=== PATIENT | male | born 1970 | race Caucasian/White ===

== ENCOUNTER → 2019-07-23 17:30 | Outpatient (BNVA) | payer MEDICARE, SELFPAY | PROVIDERS: Family Provider Nurse Practitioner Family; PCP Nurse Practitioner Family; Visit Provider Nurse Practitioner Family | DX: I10 Essential (primary) hypertension (principal); E55.9 Vitamin D deficiency, unspecified; F41.9 Anxiety disorder, unspecified | CPT/HCPCS: 80053; 80061; 82306; 83721; 84443; 85025 ==

== ENCOUNTER → 2019-08-07 14:42 | Outpatient (BNVA) | payer MEDICARE, SELFPAY | PROVIDERS: Family Provider Nurse Practitioner Family; PCP Nurse Practitioner Family; Visit Provider Nurse Practitioner Psychiatric/Mental Health | DX: F43.23 Adjustment disorder with mixed anxiety and depressed mood (principal); G47.19 Other hypersomnia; F51.04 Psychophysiologic insomnia | CPT/HCPCS: 99213 ==

== ENCOUNTER → 2019-11-28 08:17 | Outpatient (BNVA) | payer MEDICARE, MEDICAID, SELFPAY | PROVIDERS: Family Provider Nurse Practitioner Family; PCP Nurse Practitioner Family; Visit Provider Nurse Practitioner Psychiatric/Mental Health | DX: F43.23 Adjustment disorder with mixed anxiety and depressed mood (principal); G47.19 Other hypersomnia; F51.04 Psychophysiologic insomnia | CPT/HCPCS: 99213 ==

== ENCOUNTER → 2020-03-13 08:17 | Outpatient (BNVA) | payer MEDICAID, SELFPAY | PROVIDERS: Family Provider Nurse Practitioner Family; PCP Nurse Practitioner Family; Visit Provider Nurse Practitioner Psychiatric/Mental Health | DX: F43.23 Adjustment disorder with mixed anxiety and depressed mood (principal); G47.19 Other hypersomnia; F51.04 Psychophysiologic insomnia | CPT/HCPCS: 99213 ==

== ENCOUNTER → 2020-07-16 08:20 | Outpatient (BNVA) | payer MEDICAID, SELFPAY | PROVIDERS: Family Provider Nurse Practitioner Family; PCP Nurse Practitioner Family; Visit Provider Nurse Practitioner Psychiatric/Mental Health | DX: F43.23 Adjustment disorder with mixed anxiety and depressed mood (principal); G47.19 Other hypersomnia; F51.04 Psychophysiologic insomnia | CPT/HCPCS: 99212 ==

== ENCOUNTER → 2021-02-06 07:26 | Outpatient (BNVA) | payer MEDICAID, SELFPAY | PROVIDERS: Family Provider Nurse Practitioner Family; PCP Nurse Practitioner Family; Visit Provider Nurse Practitioner Psychiatric/Mental Health | DX: F43.23 Adjustment disorder with mixed anxiety and depressed mood (principal); G47.19 Other hypersomnia; F51.04 Psychophysiologic insomnia | CPT/HCPCS: 99213 ==

== ENCOUNTER 2021-03-06 01:17 | Emergency (ER) | payer MEDICARE, MEDICAID, SELFPAY ==
[2021-03-06 01:28] VITALS: BP 179/113; PULSE 99; RESP 18; TEMP 37; O2SAT 95; BMI 30.9
--- NOTE | 2021-03-06 01:41 | W.ED.WOUNDLC ---
HPI - Wound/Laceration General: Chief Complaint: Wound/Laceration Stated Complaint: lac on left arm Time Seen by Provider: 03/06/21 01:34 History of Present Illness: HPI narrative: Patient is a 50-year-old male that comes to the ED with laceration on left arm. Injury occurred just prior to arrival. Patient says he was out wrangling up one of his pigs and the tusk of pig caused laceration to patient's left forearm. There was minimal bleeding and patient was able to get it controlled. Patient cleaned out laceration with alcohol before coming to the ED. He thinks he is close to 10 years from his last tetanus shot so would like to get his tetanus booster today. Associated symptoms: Denies chills, fever(s), nausea or vomiting Review of Systems Const: Denies: fever(s), chills or fatigue Eyes: Denies: change in vision or eye discomfort ENMT: Denies: throat pain, odynophagia, nasal discharge or nasal congestion Card: Denies: chest pain, palpitations, edema, swelling of feet/ankles, dyspnea on exertion or orthopnea Resp: Denies: dyspnea, productive cough or non-productive cough GI: Denies: abdominal pain, nausea, vomiting, diarrhea, constipation or hematochezia : Denies: flank pain, difficulty urinating, dysuria or hematuria Musc: Denies: neck pain, back pain or extremity swelling Skin/Breast: Reports: new lesions (left forearm laceration); Denies: rash Neuro: Denies: headache(s), numbness in extremities or weakness in extremities [facility] ED PFSH: Medical History Adjustment disorder with mixed anxiety and depressed mood Anxiety disorder Daytime hypersomnia Psychophysiologic insomnia Vitamin D deficiency Family History Family/Other Hypertension Father Diabetes Mother Cancer Social History Smoking and tobacco status: former smoker Alcohol intake: never Lives independently: Yes Household members: spouse Marital status: Current occupational status: disabled History of recent travel: No Current gender identity: Male Physical Exam Const: COMMON NORMALS: no acute distress, patient oriented x3, healthy appearing and alert GENERAL APPEARANCE: cooperative and comfortable HENMT: COMMON NORMALS: normocephalic HEAD & SCALP: normocephalic MOUTH: Normal oral and palatal mucosa present THROAT: posterior oropharynx normal and uvula midline Neck/C-Spine: COMMON NORMALS: supple GENERAL: Yes normal visual inspection Resp: COMMON NORMALS: normal respiratory effort, No retractions, No use of accessory muscles and clear to auscultation bilaterally AUSCULTATION: clear to auscultation bilaterally Cardio: COMMON NORMALS: regular rate, regular rhythm, S1 normal heart sound present, S2 normal heart sound present, No gallops present (Cardio), No clicks present (Cardio), No murmurs present (Cardio) and Peripheral pulses 2+ throughout RATE: regular rate RHYTHM: regular rhythm HEART SOUNDS: S1 normal heart sound present and S2 normal heart sound present PERIPHERAL PULSES: Peripheral pulses 2+ throughout GI: COMMON NORMALS: Normal to inspection, nondistended, normoactive bowel sounds present, Soft to palpation, non-tender and no masses PALPATION: Yes Soft to palpation : COMMON NORMALS: Yes no CVA tenderness BLADDER/KIDNEY EXAM: Yes no CVA tenderness Back/Pelvis: COMMON NORMALS: no CVA tenderness Extremity: NARRATIVE EXTREMITY EXAM: Left forearm?superficial 1.5 cm linear laceration to middle of forearm. Laceration appears clean and no foreign body or contaminants seen. No bleeding. Neuro: COMMON NORMALS: patient oriented x3 and moves all extremities SENSORIUM/ORIENTATION: Yes alert Skin: NARRATIVE SKIN EXAM: Left forearm?superficial 1.5 cm linear laceration to middle of forearm. Laceration appears clean and no foreign body or contaminants seen. No bleeding. GENERAL SKIN EXAM: dry skin Procedures Laceration Laceration 1: Site: upper extremity (left forearm) Side (If applicable): left Size (cm): 1.5 Description: linear and clean Depth: simple, single layer Local Anesthetic: lidocaine 1% and with epi Amount of anesthesia used (mL): 10 Pre-repair: irrigated extensively (With normal saline and iodine swab) Skin layer closed with: nylon Size (cm): 4-0 Number of sutures: 5 Technique: simple, interrupted Course Vital Signs: Vital signs: Vital Signs Temperature 98.6 F 03/06/21 01:28 Pulse Rate 99 03/06/21 01:28 Respiratory Rate 18 03/06/21 01:28 Blood Pressure 179/113 03/06/21 01:28 Pulse Oximetry 95 03/06/21 01:28 MDM - Wound/Laceration MDM Narrative: Medical decision making narrative: Patient is a 50-year-old male comes to the ED with a laceration on left forearm. Laceration site was irrigated extensively with normal saline and cleaned with iodine swab. Lidocaine with epi was used as local. 5 sutures were placed to close laceration. Patient was given updated tetanus and discharged home with a prophylactic prescription of cephalexin. Return ED precautions given. Patient was instructed on suture care and when to have sutures removed. Patient understood and agreed with plan. Discharge Plan Discharge Patient Disposition: Home Clinical Impression: Laceration of forearm Qualifiers: Encounter type: initial encounter Laterality: left Qualified Code(s): S51.812A - Laceration without foreign body of left forearm, initial encounter Condition: Stable Prescriptions: New cephalexin 500 mg capsule 500 mg PO Q6H 4 Days Qty: 16 RF: 0 No Action acetaminophen [Tylenol Extra Strength] 500 mg tablet 500 mg PO QID PRNRF: 0 magnesium 250 mg tablet 250 mg PO .morning Qty: 30 RF: 5 omega-3 fatty acids [Fish Oil Concentrate] 1,000 mg capsule 1,000 mg PO .morning Qty: 30 RF: 5 cholecalciferol (vitamin D3) 1,250 mcg (50,000 unit) capsule 1,250 mcg PO .morning Qty: 30 RF: 5 buspirone 15 mg tablet 15 mg PO BID Qty: 60 RF: 6 mirtazapine 30 mg tablet 30 mg PO .bedtime Qty: 30 RF: 6 Discharge Orders: Discharge ED (Routine); Ordered 03/06/21 Ordered By: Dominic Mcgrath Discharge Diet: Regular Discharge Activity: Resume usual activity Patient Instructions: Suture Care (ED), Laceration (ED) Activity Restrictions/Additional Instructions: Take full course of antibiotics as prescribed. Keep laceration site clean and dry for the next 48 hours. Then after that you can clean and re-bandage daily. Watch for signs of infection such as redness, warmth, increased tenderness and puslike drainage. If you see the signs of infection return to the ED, urgent care or PCP for reevaluation. call your PCP to schedule a follow-up appointment for reevaluation and suture removal in about 7- 10 days. Continue taking all home meds. Follow discharge plans as discussed. You can return to the ED if symptoms worsen. Coding Level of Care Code ED Talent Acquisition Program Manager for Chg Fwd Exam Comprehensive
[2021-03-06] MEDS: cephALEXin 500 mg Capsule PO (02:13)
[2021-03-06] MEDS: tetanus-dipt-pertussis 0.5 mL SDV IM (02:13)
[2021-03-06 02:20] VITALS: RESP 18; TEMP 37; O2SAT 95
== END 2021-03-06 02:21 | disposition home or self-care (01) ==
PROVIDERS: Emergency Provider Physician Assistant
DX: S51.812A Laceration without foreign body of left forearm, initial encounter (principal); Z87.891 Personal history of nicotine dependence; W55.42XA Struck by pig, initial encounter; Z23 Encounter for immunization
CPT/HCPCS: 12001; 90471; 90715; 99282

== ENCOUNTER → 2021-08-21 07:36 | Outpatient (BNVA) | payer MEDICARE, MEDICAID, SELFPAY | PROVIDERS: Visit Provider Nurse Practitioner Psychiatric/Mental Health | DX: F43.23 Adjustment disorder with mixed anxiety and depressed mood (principal); G47.19 Other hypersomnia; F51.04 Psychophysiologic insomnia | CPT/HCPCS: 99214 ==

== ENCOUNTER → 2022-05-04 14:20 | Outpatient (BNVA) | payer MEDICARE, MEDICAID, SELFPAY | PROVIDERS: Visit Provider Nurse Practitioner | DX: R39.9 Unspecified symptoms and signs involving the genitourinary system (principal); E55.9 Vitamin D deficiency, unspecified | CPT/HCPCS: 80053; 81000; 82306 ==

== ENCOUNTER 2022-09-13 14:40 | Emergency (ER) | payer MEDICARE, MEDICAID, SELFPAY ==
[2022-09-13 15:06] VITALS: BP 144/96; PULSE 88; RESP 18; TEMP 35.9; O2SAT 98
[2022-09-13 15:40] LABS: Basophils # 0.1 10^3/uL (0.0-0.1); Basophils % 0.5 %; Eosinophils % 0.4 %; Hematocrit 45.1 % (42.0-52.0); Hemoglobin 15.9 g/dL (11.7-16.6); Lymphocytes # 1.9 10^3/uL (0.8-4.8); Lymphocytes % 17.5 %; Mean Corpuscular HGB Conc 35.3 g/dL (30.0-36.0); Mean Corpuscular Hemoglobin 37.3 pg (28.0-34.0); Mean Corpuscular Volume 105.9 fl (80-94); Mean Platelet Volume 10.8 fL (7.4-10.4); Monocytes # 0.6 10^3/uL (0.2-0.9); Monocytes % 5.4 %; Neutrophils # 8.15 10^3/uL (1.8-7.7); Nucleated Red Blood Cells % 0 %; Platelet Count 263 10^3/cmm (130-400); Red Blood Count 4.26 10^6/uL (4.1-5.3); Red Cell Distribution Width 14.7 % (12.1-15.1); White Blood Count 10.7 10^3/uL (4.0-10.0)
[2022-09-13 15:59] LABS: Alanine Aminotransferase 25 U/L (0-41); Albumin Level 4.5 g/dL (3.5-5.2); Alkaline Phosphatase 78 U/L (40-130); Anion Gap 14.8 (5-19); Aspartate Amino Transferase 21 U/L (0-40); Blood Urea Nitrogen 12 mg/dL (6-20); Calcium 9.4 mg/dL (8.5-10.5); Carbon Dioxide 27 mmol/L (22-29); Chloride 104 mmol/L (98-107); Globulin 2.6 g/dL (1.3-4.6); Glucose 144 mg/dL (65-115); Lipase 25 U/L (13-60); Osmolality Calculated 296 mOsm/kg (285-295); Potassium 3.8 mmol/L (3.5-5.1); Sodium 142 mmol/L (136-145); Total Bilirubin 1.1 mg/dL (0.15-1.2); Total Protein 7.1 g/dL (6.6-8.7)
[2022-09-13 17:38] VITALS: BP 159/94; PULSE 95; O2SAT 99
--- NOTE | 2022-09-13 18:01 | W.ED.ABDPA2 ---
HPI - Abdominal Pain General: Chief Complaint: Abdominal Pain Stated Complaint: abd pain Time Seen by Provider: 09/13/22 17:55 History of Present Illness: Patient presents to the ER with complaints of intermittent right upper quadrant pain and mild nausea and vomiting since 2016. Patient reports he has gallbladder removed at that time and since then he has had this though pain with nausea vomiting off and on. Patient said that has gotten worse over this last month. Patient rates the pain a 1 out of 10 patient has tried to get into a primary care doctor but is unable to do that for the next couple weeks. Patient has tried to get in with primary care but is unable to do that for the next couple weeks MD elicited complaint: abdominal pain Onset (ago): year(s) Pain Consistency: intermittent Location: RUQ Severity: mild Pain scale (0-10): 1 Quality: dull Radiation: none Migration to: no migration Exacerbating factors: nothing Relieving factors: nothing Associated Symptoms: Reports nausea and vomiting; Denies chills, dysuria and fever(s) Review of Systems General: Reports: 10 or more systems reviewed and unremarkable except in HPI and below Const: Denies: fever(s), chills or body aches Eyes: Denies: change in vision ENMT: Denies: throat pain or odynophagia Card: Denies: chest pain, palpitations or irregular heart rhythm Resp: Denies: dyspnea GI: Reports: abdominal pain, nausea and vomiting : Denies: flank pain, difficulty urinating or dysuria Musc: Denies: neck pain, back pain or extremity pain Skin/Breast: Denies: rash, pruritus or erythema Neuro: Denies: headache(s), numbness in extremities or weakness in extremities Psych: Denies: anxiety or depression Endo: Denies: polyuria or polydipsia Chapin/Lymph: Denies: easy bruising or easy bleeding PFSH ED PFSH: Medical History Adjustment disorder with mixed anxiety and depressed mood Anxiety disorder Bereavement Daytime hypersomnia DDD (degenerative disc disease), cervical DDD (degenerative disc disease), lumbar Generalized OA Psychophysiologic insomnia Vitamin D deficiency Surgical History Hx of arthroscopy of left knee (~04/2012) Hx of cholecystectomy (~2014) Family History Family/Other Hypertension Father Diabetes Mother Cancer Social History Smoking and tobacco status: former smoker Second hand smoke exposure: No Smoking risk assessment/counseling performed?: No Alcohol intake: never Desire information about alcohol rehabilitation?: No Counseling given: No Desire information about substance/drug rehabilitation?: No Counseling given: No Adopted: No Caregiver/support person: No Lives independently: Yes Household members: spouse Housing: House Marital status: service: No Current occupational status: retired and disabled Current gender identity: Male Physical Exam Const: COMMON NORMALS: no acute distress, average body habitus, patient oriented x3, no limitations, healthy appearing, alert and well nourished HENMT: COMMON NORMALS: normocephalic, atraumatic and hearing grossly normal bilaterally HEAD & SCALP: normocephalic and atraumatic Eye: COMMON NORMALS: EOMs intact bilaterally and conjunctivae normal CONJUNCTIVA: Yes conjunctivae normal Neck/C-Spine: COMMON NORMALS: full ROM, no lymphadenopathy, supple and no JVD Chest: COMMONS NORMALS: normal inspection of the chest Resp: COMMON NORMALS: normal respiratory effort, No retractions, No use of accessory muscles and clear to auscultation bilaterally AUSCULTATION: clear to auscultation bilaterally Cardio: COMMON NORMALS: no JVD, regular rate, regular rhythm, S1 normal heart sound present and S2 normal heart sound present RATE: regular rate RHYTHM: regular rhythm HEART SOUNDS: S1 normal heart sound present and S2 normal heart sound present GI: COMMON NORMALS: Normal to inspection, nondistended, normoactive bowel sounds present, Soft to palpation, non-tender, No hepatosplenomegaly present and no masses PALPATION: Yes Soft to palpation and Yes No hepatosplenomegaly present Neuro: COMMON NORMALS: patient oriented x3, CN's II-XII intact bilaterally, moves all extremities, no focal motor deficits and no sensory deficits noted SENSORIUM/ORIENTATION: Yes alert Course Vital Signs: Vital signs: Vital Signs Temperature 96.7 F L 09/13/22 15:06 Pulse Rate 95 09/13/22 17:38 Respiratory Rate 18 09/13/22 15:06 Blood Pressure 159/94 09/13/22 17:38 Pulse Oximetry 99 09/13/22 17:38 Oxygen Delivery Me thod 09/13/22 15:06 MDM - Abdominal Pain Medical Decision Making Presents to the ER with complaints of intermittent right upper quadrant pain with nausea vomiting since 2015. The pain has gotten mildly worse over the last month. He currently rates it a 1 out of 10. History and physical exam were obtained from the patient lab work was performed including a CBC CMP and urinalysis. Physical exam and lab work performed were all benign. No acute changes or significant findings were found. Patient will be discharged to follow-up with his primary care practitioner within the next couple weeks. Differential Diagnosis Likely abdominal pain; Unlikely gastroenteritis, pancreatitis or small bowel obstruction Lab Data I reviewed the patient's lab results. 09/13/22 15:32 09/13/22 15:32 Labs/Radiology: Laboratory Results WBC 10.7 10^3/uL (4.0-10.0) H 09/13/22 15: RBC 4.26 10^6/uL (4.1-5.3) 09/13/22 15: Hgb 15.9 g/dL (11.7-16.6) 09/13/22 15: Hct 45.1 % (42.0-52.0) 09/13/22 15: MCV 105.9 fl (80-94) H 09/13/22 15: MCH 37.3 pg (28.0-34.0) H 09/13/22 15: MCHC 35.3 g/dL (30.0-36.0) 09/13/22 15: RDW 14.7 % (12.1-15.1) 09/13/22 15:32 Plt Count 263 10^3/cmm (130-400) 09/13/22 15: MPV 10.8 fL (7.4-10.4) H 09/13/22 15: Neut % (Auto) 76.0 % 09/13/22 15: Lymph % (Auto) 17.5 % 09/13/22 15: Stark % (Auto) 5.4 % 09/13/22 15: Eos % (Auto) 0.4 % 09/13/22 15: Baso % (Auto) 0.5 % 09/13/22 15:32 Neut # (Auto) 8.15 10^3/uL (1.8-7.7) H 09/13/22 15:32 Lymph # (Auto) 1.9 10^3/uL (0.8-4.8) 09/13/22 15:32 Stark # (Auto) 0.6 10^3/uL (0.2-0.9) 09/13/22 15: Eos # (Auto) 0.0 10^3/uL (0.0-0.8) 09/13/22 15:32 Baso # (Auto) 0.1 10^3/uL (0.0-0.1) 09/13/22 15: Nucleated RBC % (auto) 0 % 09/13/22 15: Nucleated RBCs # 0.0 /100WBC 09/13/22 15:32 Sodium 142 mmol/L (136-145) 09/13/22 15:32 Potassium 3.8 mmol/L (3.5-5.1) 09/13/22 15:32 Chloride 104 mmol/L (98-107) 09/13/22 15:32 Carbon Dioxide 27 mmol/L (22-29) 09/13/22 15:32 Anion Gap 14.8 (5-19) 09/13/22 15:32 BUN 12 mg/dL (6-20) 09/13/22 15:32 Creatinine 0.9 mg/dL (0.7-1.2) 09/13/22 15:32 GFR Calculation 89.0 mL/min (90-130) L 09/13/22 15:32 Glucose 144 mg/dL (65-115) H 09/13/22 15:32 Calculated Osmolality 296 mOsm/kg (285-295) H 09/13/22 15:32 Calcium 9.4 mg/dL (8.5-10.5) 09/13/22 15:32 Total Bilirubin 1.1 mg/dL (0.15-1.2) 09/13/22 15:32 AST 21 U/L (0-40) 09/13/22 15:32 ALT 25 U/L (0-41) 09/13/22 15:32 Alkaline Phosphatase 78 U/L (40-130) 09/13/22 15:32 Total Protein 7.1 g/dL (6.6-8.7) 09/13/22 15:32 Albumin 4.5 g/dL (3.5-5.2) 09/13/22 15:32 Globulin 2.6 g/dL (1.3-4.6) 09/13/22 15:32 Lipase 25 U/L (13-60) 09/13/22 15:32 Urine Color Light yellow (Yellow) 09/13/22 17:40 Urine Appearance Clear (CLEAR) 09/13/22 17:40 Urine pH 7 (5-7) 09/13/22 17:40 Ur Specific Buena 1.015 (1.005-1.030) 09/13/22 17:40 Urine Protein Neg (Negative) 09/13/22 17:40 Urine Glucose (UA) Norm (Normal) 09/13/22 17:40 Urine Ketones Negative (Negative) 09/13/22 17:40 Urine Blood Trace (Negative) H 09/13/22 17:40 Urine Nitrate Negative (Negative) 09/13/22 17:40 Urine Bilirubin Neg (Negative) 09/13/22 17:40 Urine Urobilinogen Neg mg/dL (Negative) 09/13/22 17:40 Ur Leukocyte Esterase Negative (Negative) 09/13/22 17:40 Urine RBC 0-4 /hpf (0-2) H 09/13/22 17:40 Urine WBC None /hpf (0-5) 09/13/22 17:40 Ur Squamous Epith Cells None /hpf (0-5) 09/13/22 17:40 Amorphous Sediment Not Reportable 09/13/22 17:40 Urine Bacteria None /hpf (NONE) 09/13/22 17:40 Discharge Plan Discharge Patient Disposition: Home Clinical Impression: Abdominal pain Qualifiers: Abdominal location: right upper quadrant Qualified Code(s): R10.11 - Right upper quadrant pain Condition: Stable Prescriptions: New ondansetron HCl 4 mg tablet 4 mg PO Q8H PRN (Reason: nausea and vomiting) Qty: 14 0RF No Action acetaminophen [Tylenol Extra Strength] 500 mg tablet 500 mg PO QID PRN magnesium 250 mg tablet 250 mg PO .morning Qty: 30 5RF Rx Instructions: Take one tablet every morning omega-3 fatty acids [Fish Oil Concentrate] 1,000 mg capsule 1,000 mg PO .morning Qty: 30 5RF Rx Instructions: Take one capsule every morning multivitamin Tablet 1 tab PO DAILY cholecalciferol (vitamin D3) 1,250 mcg (50,000 unit) capsule 1,250 mcg PO .weekly mirtazapine 30 mg tablet 30 mg PO .bedtime Qty: 90 2RF Rx Instructions: Take one tablet at bedtime buspirone 15 mg tablet 15 mg PO BID Qty: 180 2RF Rx Instructions: Take one tablet twice per day Discharge Orders: Discharge ED (Routine); Ordered 09/13/22 Ordered By: Chris Bright Discharge Diet: Advance as tolerated Discharge Activity: Resume usual activity Patient Instructions: Abdominal Pain (ED) Coding Level of Care Code ED Pipe Bowls Paint Trimmer for Ela Irwin
[2022-09-13 18:04] LABS: Add Urine Microscopic? YES; Bilirubin Urine Neg (Negative); Blood Urine Trace (Negative); Glucose Urine UA Norm (Normal); Ketones Urine Negative (Negative); Leukocyte Esterase Urine Negative (Negative); Nitrate Urine Negative (Negative); Protein Urine Neg (Negative); RBC Urine 0-4 /hpf (0-2); Specific Gravity, Urine 1.015 (1.005-1.030); Urine Appearance Clear (CLEAR); Urine Color Light yellow (Yellow); Urobilinogen Urine Neg (Negative); pH Urine 7 (5-7)
[2022-09-13 18:05] LABS: Add Urine Culture? No
--- NOTE | 2022-09-14 16:50 | DCPLANNER ---
TCM called patient due to no primary care physician - patient stated that he sees COSMET[facility] SALES ADVISOR[facility]lie at [facility].
== END 2022-09-13 18:35 | disposition home or self-care (01) ==
PROVIDERS: Physician Assistant; Emergency Provider Emergency Medicine; PCP Nurse Practitioner
DX: R10.11 Right upper quadrant pain (principal); R11.2 Nausea with vomiting, unspecified
CPT/HCPCS: 36415; 80053; 81001; 83690; 85025; 99283

== ENCOUNTER → 2022-12-27 15:00 | Outpatient (BNVA) | payer MEDICARE, MEDICAID, OTHER, SELFPAY | PROVIDERS: PCP Nurse Practitioner; Visit Provider Nurse Practitioner Family | DX: R11.2 Nausea with vomiting, unspecified (principal); R19.7 Diarrhea, unspecified; R71.8 Other abnormality of red blood cells; F41.9 Anxiety disorder, unspecified; R73.9 Hyperglycemia, unspecified; E55.9 Vitamin D deficiency, unspecified | CPT/HCPCS: 80053; 82306; 82607; 82746; 83036; 84443; 85025; 86003; 86008; 86618; 86666; 86757 ==

== ENCOUNTER → 2023-02-21 14:12 | Outpatient (BNVA) | payer MEDICARE, MEDICAID, SELFPAY | PROVIDERS: PCP Nurse Practitioner; Visit Provider Surgery | DX: R10.9 Unspecified abdominal pain (principal); R10.11 Right upper quadrant pain; R11.2 Nausea with vomiting, unspecified | CPT/HCPCS: 99203 ==

== ENCOUNTER 2023-02-22 14:35 | Outpatient (CLI) | payer MEDICARE, MEDICAID, SELFPAY | END 2023-02-22 14:36 | disposition home or self-care (01) | LOC: LAB 14:38 | PROVIDERS: PCP Nurse Practitioner; Visit Provider Surgery | DX: R10.9 Unspecified abdominal pain (principal) | CPT/HCPCS: 87338 ==

== ENCOUNTER 2023-03-09 09:35 | Outpatient (CLI) | payer MEDICARE, MEDICAID, SELFPAY ==
--- NOTE | 2023-03-09 10:00 | US_ITS ---
WS: [id number] Complete ABDOMINAL ULTRASOUND HISTORY: Right upper quadrant pain COMPARISON: Gallbladder ultrasound 03/11/2016 Liver: 16.0 cm in length. Normal size liver and echogenicity. No bile duct dilatation or mass. Portal Vein: Normal hepatopetal flow with monophasic waveform. Gallbladder: Prior cholecystectomy. CBD: 0.6 cm Pancreas: Obscured. Completely shadowed by bowel gas. Right kidney: 11.3 cm x 6.5 x 5.1 cm. Cortex: 1.2 cm. Normal size and echogenicity. No hydronephrosis or mass. Left kidney: 12.7 cm x 6.6 cm x 6.1 cm. Cortex: 1.3 cm. Normal size kidney. No hydronephrosis. Simple cortical cyst mid kidney measures 3.9 x 3.3 x 3.2 cm. Spleen: 10.4 cm in length. Normal. Aorta and IVC: Unremarkable abdominal aorta and IVC. Impression: 1. Prior cholecystectomy. 2. No intrahepatic bile duct dilatation. 3. Obscured pancreas secondary to bowel gas. 4. Simple cyst LEFT kidney.
== END 2023-03-09 09:36 | disposition home or self-care (01) ==
PROVIDERS: PCP Nurse Practitioner; Visit Provider Surgery
DX: R10.11 Right upper quadrant pain (principal); Z90.49 Acquired absence of other specified parts of digestive tract; N28.1 Cyst of kidney, acquired
CPT/HCPCS: 76700

== ENCOUNTER 2024-11-18 18:39 | Emergency (ER) | payer MEDICARE, SELFPAY ==
[2024-11-18 18:46] VITALS: BP 166/95; PULSE 93; RESP 16; TEMP 37.2; O2SAT 96; BMI 28.0
--- NOTE | 2024-11-18 19:21 | W.ED.FEVER ---
HPI - Fever General: Chief Complaint: Fever Stated Complaint: flu like symptoms Time Seen by Provider: 11/18/24 19:05 History of Present Illness: John Pittman presents to the ER with a mild fever, aches, and throat pain that began last night. He reports a temperature of 100.3?F. The patient also mentions a mild headache. These symptoms are similar to those his daughter experienced about a week and a half ago, which included fevers, chills, nausea, sweating, shakes, and aches in her jaw and throat lasting over 3 days. Mr. Pittman states he was bitten by a tick 3 weeks ago, while his daughter was bitten a few days before her symptoms started. He mentions having Alphagan from a tick bite in 2016 but reports no current symptoms from that. 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 Mr. Pittman reports recent exposure to rj seymour litter while caring for his [id number], who has many cats. He usually wears a mask but notes that he still contracted this illness. The patient is currently on day one of his symptoms and anticipates they will worsen over the next four days based on his daughter's experience. Related Data Home Medications ?Medication ?Instructions ?Recorded ?Confirmed acetaminophen 500 mg tablet 500 mg PO QID PRN 08/07/19 09/28/24 (Tylenol Extra Strength) multivitamin 1 tab PO DAILY 05/04/22 09/28/24 DGL as directed 02/21/23 09/28/24 famotidine 10 mg tablet 10 mg PO DAILY 04/04/24 09/28/24 Previous Rx's ?Medication ?Instructions ?Recorded omega-3 fatty acids 1,000 mg 1,000 mg PO .morning #30 caps 03/13/20 capsule (Fish Oil Concentrate) buspirone 15 mg tablet 15 mg PO BID #180 tabs 08/24/24 mirtazapine 30 mg tablet 30 mg PO .bedtime #90 tabs 08/24/24 Allergies Allergy/AdvReac Type Severity Reaction Status Date / Time Alpha-Gal Allergy nausea Verified 09/28/24 13:50 ([id number]-2,3-Gala [facility] ED PFSH: Medical History Adjustment disorder with mixed anxiety and depressed mood Bereavement Daytime hypersomnia DDD (degenerative disc disease), cervical DDD (degenerative disc disease), lumbar Generalized OA Surgical History Hx of arthroscopy of left knee (~04/2012) Hx of cholecystectomy (~2014) Family History Family/Other Hypertension Father Diabetes Mother Cancer Social History Smoking and tobacco/nicotine status: former use of tobacco/nicotine Second hand smoke exposure: No Alcohol intake: never Substance/Drug Use: unknown Adopted: No Caregiver/support person: No Lives independently: Yes Household members: spouse Housing: House Marital status: service: No Current occupational status: retired and disabled Do you think of yourself as: Straight/Heterosexual Current gender identity: Male Physical Exam Const: COMMON NORMALS: no acute distress, patient oriented x3, healthy appearing, alert and well nourished HENMT: COMMON NORMALS: normocephalic HEAD & SCALP: normocephalic THROAT: posterior oropharynx abnormal erythema Eye: COMMON NORMALS: EOMs intact bilaterally Neck/C-Spine: COMMON NORMALS: full ROM and supple Resp: COMMON NORMALS: normal respiratory effort, No retractions and clear to auscultation bilaterally AUSCULTATION: clear to auscultation bilaterally Cardio: COMMON NORMALS: regular rate, regular rhythm, No gallops present (Cardio) and No murmurs present (Cardio) RATE: regular rate RHYTHM: regular rhythm GI: COMMON NORMALS: Soft to palpation and non-tender PALPATION: Yes Soft to palpation Extremity: GENERAL: Yes normal exam except as noted Neuro: COMMON NORMALS: patient oriented x3 SENSORIUM/ORIENTATION: Yes alert Skin: COMMON NORMALS: no rashes or lesions noted GENERAL SKIN EXAM: no rashes or lesions noted Course Vital Signs: Vital signs: Vital Signs Temperature 98.9 F 11/18/24 18:46 Pulse Rate 93 11/18/24 18:46 Respiratory Rate 16 11/18/24 18:46 Blood Pressure 166/95 11/18/24 18:46 Pulse Oximetry 96 11/18/24 18:46 Oxygen Delivery Me thod Room Air 11/18/24 18:46 MDM - Fever Medical Decision Making 53-year-old male presents to the emergency department for evaluation of fever, body aches, and throat pain for 1 day. Patient's daughter is experiencing the same symptoms. Patient has concern for tickborne illness. He does not currently have any rashes. Counseled the patient on prodromal symptoms. Patient likely has an upper respiratory virus. His flu, COVID, RSV test was negative today. Counseled the patient on supportive care. Encouraged him to follow-up with his primary care physician on the tick panel that was drawn in the emergency department today. Patient is low risk at this point for a tickborne illness and therefore doxycycline will not be started today. Counseled the patient on other signs and symptoms of tickborne illness and encouraged him to follow-up if he develops any of those symptoms. Patient was discharged in stable condition. Lab Data Laboratory Results Influenza A (PCR) Negative (Negative) 11/18/24 19:31 Influenza Type B (PCR) Negative (Negative) 11/18/24 19:31 RSV (PCR) Negative (Negative) 11/18/24 19:31 SARS-CoV-2 (PCR) Negative (Negative) 11/18/24 19:31 No radiology studies performed this visit Discharge Plan Discharge Patient Disposition: Home Clinical Impression: Acute upper respiratory infection, Viral infection Condition: Stable Prescriptions: No Action acetaminophen [Tylenol Extra Strength] 500 mg tablet 500 mg PO QID PRN omega-3 fatty acids [Fish Oil Concentrate] 1,000 mg capsule 1,000 mg PO .morning Qty: 30 5RF Rx Instructions: Take one capsule every morning multivitamin Tablet 1 tab PO DAILY mirtazapine 30 mg tablet 30 mg PO .bedtime Qty: 90 2RF Rx Instructions: Take one tablet at bedtime buspirone 15 mg tablet 15 mg PO BID Qty: 180 2RF Rx Instructions: Take one tablet twice per day DGL as directed famotidine 10 mg tablet 10 mg PO DAILY Discharge Orders: Discharge ED (Routine); Ordered 11/18/24 Ordered By: Rogerio Alarcon Referrals: June Dailey, VALORIEC [Primary Care Provider, [facility]] Discharge Diet: Advance as tolerated Discharge Activity: Resume usual activity Patient Instructions: Viral Syndrome (ED), Opioid Safety, Pain Management, Upper Respiratory Infection - Adult Activity Restrictions/Additional Instructions: Please follow with your primary care physician on the results for your tick panel. Return to the emergency department with any new or worsening symptoms. Print Language: Armenian Coding Level of Care Code ED Olericulture Teacher for Ela Irwin
[2024-11-18 20:22] LABS: Influenza A NEGATIVE (Negative); Influenza B NEGATIVE (Negative); Respiratory Syncytial Virus Ce NEGATIVE (Negative); SARS-CoV-2 PCR NEGATIVE (Negative)
[2024-11-21 07:53] LABS: Lyme AB Screen <0.90 index
== END 2024-11-18 21:29 | disposition home or self-care (01) ==
PROVIDERS: Emergency Provider General Practice; PCP Nurse Practitioner
DX: J06.9 Acute upper respiratory infection, unspecified (principal); T14.8XXA Other injury of unspecified body region, initial encounter; W57.XXXA Bitten or stung by nonvenomous insect and other nonvenomous arthropods, initial encounter; Z87.891 Personal history of nicotine dependence; Z11.52 Encounter for screening for COVID-19; Z77.128 Contact with and (suspected) exposure to other hazards in the physical environment
CPT/HCPCS: 36415; 86618; 86666; 86757; 87637; 99283

== ENCOUNTER 2025-04-30 17:45 | Emergency (ER) | payer MEDICARE, SELFPAY ==
[2025-04-30 17:48] VITALS: PULSE 97; RESP 18; TEMP 37.3; O2SAT 97
--- OUTSIDE RECORDS SUMMARY | 2025-04-30 17:52 | XMS_ITS | Encounter Summary ---
Author Organization [facility] Address [address] [place] [address] Care Team Providers Care Intramural Director Name Role Phone Unavailable Primary Care Provider Unavailabl e Encounter Details Date Type Department Care Team (Late st Contact Info) Description 09/27/2006 Outpatient Historical [facility] [place] [address] [place] [address] Alirio Colbert MD 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
--- OUTSIDE RECORDS SUMMARY | 2025-04-30 17:52 | XMS_ITS | Clinical Summary ---
Author Organization [facility] Address [address] 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
--- NOTE | 2025-04-30 17:56 | CTR_ITS ---
PROCEDURE INFORMATION: Exam: CT Abdomen And Pelvis Without Contrast Exam date and time: 04/30/2025 6:34 PM Age: 54 years old Clinical indication: Abdominal pain; -patient reports he has right flank pain that started yesterday. Patient states he has burning whene he urinates, with frequent urination, and small amount of urine. TECHNIQUE: Imaging protocol: Computed tomography of the abdomen and pelvis without contrast. Radiation optimization: All CT scans at this facility use at least one of these dose optimization techniques: automated exposure control; mA and/or kV adjustment per patient size (includes targeted exams where dose is matched to clinical indication); or iterative reconstruction. COMPARISON: US abdomen complete* [id number] 03/09/2023 9:50 AM RADIATION DOSE METRICS: Total DLP (mGy-cm): 1175.33 FINDINGS: Liver: Normal. No mass. Gallbladder and biliary ducts: There has been cholecystectomy. Pancreas: Normal. No ductal dilation. Spleen: Normal. No splenomegaly. Adrenal glands: Normal. No mass. Kidneys and ureters: There is a 4.9 cm cyst in the mid left kidney. No renal calcification or hydronephrosis. Stomach and bowel: No bowel obstruction or wall thickening. Appendix: No evidence of appendicitis. Intraperitoneal space: Unremarkable. No free air. No significant fluid collection. Vasculature: Unremarkable. No abdominal aortic aneurysm. Lymph nodes: Unremarkable. No enlarged lymph nodes. Urinary bladder: Unremarkable as visualized. Reproductive: Unremarkable as visualized. Bones/joints: Unremarkable. No acute fracture. Soft tissues: There is a left inguinal hernia containing sigmoid colon. CT/CT kidney stone [id number] IMPRESSION: There are no acute concerning abnormalities. COMMENTS: Consistent with the [employer]'s Incidental Findings Committee white paper (J Am Rajinder Radiol 2018): Any incidental renal lesion less than 1 cm or classified as too small to characterize, or any incidental cystic renal lesion characterized as simple-appearing, is likely benign. No follow-up imaging is recommended for these lesions per consensus recommendations based on imaging criteria.
[2025-04-30 18:44] LABS: Glucose Urine UA Negative (Normal); Nitrate Urine Negative (Negative); Specific Gravity, Urine 1.004 (1.005-1.030)
[2025-04-30 18:49] LABS: Add Urine Microscopic? YES
--- NOTE | 2025-04-30 19:19 | W.ED.MALEGU ---
HPI - Male Genitourinary General: Chief complaint: Urogenital-Male Stated complaint: low back/flank pain, ongoing need to urinate Time Seen by Provider: 04/30/25 19:19 History of Present Illness: 54-year-old male with a history of chronic back pain who presents to the emergency room with right flank pain. He says this started this morning and went away and then came back again. He says he has felt some urinary urgency. No dysuria. No fevers. No nausea or vomiting. He took and all TRAM and the pain has gone away Related Data Home Medications ?Medication ?Instructions ?Recorded ?Confirmed acetaminophen 500 mg tablet 500 mg PO QID PRN 08/07/19 02/22/25 (Tylenol Extra Strength) multivitamin 1 tab PO DAILY 05/04/22 02/22/25 DGL as directed 02/21/23 02/22/25 omeprazole 20 mg capsule,delayed 20 mg PO DAILY 02/22/25 02/22/25 release Previous Rx's ?Medication ?Instructions ?Recorded omega-3 fatty acids 1,000 mg 1,000 mg PO .morning #30 caps 03/13/20 capsule (Fish Oil Concentrate) buspirone 15 mg tablet 15 mg PO BID #30 tabs 02/22/25 mirtazapine 30 mg tablet 30 mg PO .bedtime #30 tabs 02/22/25 Allergies Allergy/AdvReac Type Severity Reaction Status Date / Time Alpha-Gal Allergy nausea Verified 02/22/25 14:44 ([id number],3-Gala Review of Systems Narrative: Constitutional symptoms: Negative except as documented in HPI. Skin symptoms: Negative except as documented in HPI. Eye symptoms: Negative except as documented in HPI. ENMT symptoms: Negative except as documented in HPI. Respiratory symptoms: Negative except as documented in HPI. Cardiovascular symptoms: Negative except as documented in HPI. Gastrointestinal symptoms: Negative except as documented in HPI. Genitourinary symptoms: Negative except as documented in HPI. Musculoskeletal symptoms: Negative except as documented in HPI. Neurologic symptoms: Negative except as documented in HPI. Psychiatric symptoms: Negative except as documented in HPI. Endocrine symptoms: Negative except as documented in HPI. [facility] PFSH: Medical History (Updated 04/30/25 @ 19:54 by Deb Barahona MD) Psychiatric care DDD (degenerative disc disease), lumbar DDD (degenerative disc disease), cervical Generalized OA Bereavement Daytime hypersomnia Adjustment disorder with mixed anxiety and depressed mood Surgical History Hx of arthroscopy of left knee (~04/2012) Hx of cholecystectomy (~2014) Family History Family/Other Hypertension Father Diabetes Mother Cancer Social History Smoking and tobacco/nicotine status: former use of tobacco/nicotine Second hand smoke exposure: No Alcohol intake: never Substance/Drug Use: unknown Adopted: No Caregiver/support person: No Lives independently: Yes Household members: spouse Housing: House Marital status: service: No Current occupational status: retired and disabled Do you think of yourself as: Straight/Heterosexual Current gender identity: Male Physical Exam Narrative: EXAM NARRATIVE: General: Alert, no acute distress. Skin: warm and dry Head: Normocephalic Neck: Trachea midline Eye: Extraocular movements are intact. Ears, nose, mouth and throat: Oral mucosa moist Respiratory: Respirations are non-labored Musculoskeletal: Normal ROM Gastrointestinal: Abdomen does not appear distended Neurological: Alert and oriented, No focal neurological deficit observed. Psychiatric: Cooperative, appropriate mood & affect. Course Vital Signs: Vital signs: Vital Signs Temperature 99.1 F 04/30/25 17:48 Pulse Rate 97 04/30/25 17:48 Respiratory Rate 18 04/30/25 17:48 Pulse Oximetry 97 04/30/25 17:48 Oxygen Delivery Me thod Room Air 04/30/25 17:48 MDM - Male Medical Decision Making Medical decision making: Patient's reason for coming to the emergency room: Flank pain Social determinants: None I reviewed the patient's medical record. Patient has only had a few visits to his PCP and a couple to the emergency room in the past. I reviewed the patient's current home meds Patient is on Ultram at home. Alternate historians: None Differential diagnosis including but not limited to and based on the above HPI, review of systems and physical exam: In this patient with flank pain would have concern for: Ureterolithiasis. Urinary tract infection. Appendicitis. Cholecystitis. Musculoskeletal / back pain. Pyelonephritis. Orders placed to evaluate differential diagnosis based on the above differential, HPI and physical exam Lab Review: Laboratory results were reviewed and interpreted by myself the emergency room physician. Mild leukocytosis. No anemia. No renal failure. Urinalysis is negative for infection or blood. CT of the abdomen pelvis without contrast: No kidney stones or hydronephrosis. No other acute processes. This was reviewed and interpreted by myself the emergency room physician. I also reviewed the radiology report. Assessment of risk: Level of risk: Minimal Hospitalization considerations: Patient not considered for admission. Reexamination: Patient remains pain-free. Patient remained stable. No increased work of breathing. No altered mental status. No focal motor deficits. Assessment and plan: Flank pain - Discharged home - Discussed plan with patient. Answered any questions. - Evaluation and treatment of this problem were appropriate in the emergency setting. Lab Data 04/30/25 19:10 04/30/25 19:10 Radiology Impressions Abdomen/Pelvis CT 04/30/25 17:56 IMPRESSION: There are no acute concerning abnormalities. COMMENTS: Consistent with the [employer]'s Incidental Findings Committee white paper (J Am Rajinder Radiol 2018): Any incidental renal lesion less than 1 cm or classified as too small to characterize, or any incidental cystic renal lesion characterized as simple-appearing, is likely benign. No follow-up imaging is recommended for these lesions per consensus recommendations based on imaging criteria. Laboratory Results WBC 11.67 10^3/uL (3.29-11.43) H 04/30/25 19:10 RBC 4.50 10^6/uL (3.85-5.65) 04/30/25 19:10 Hgb 16.60 g/dL (11.27-16.99) 04/30/25 19:10 Hct 46.8 % (37-53) 04/30/25 19:10 MCV 104.0 fl (82-101) H 04/30/25 19:10 MCH 36.9 pg (27-33) H 04/30/25 19:10 MCHC 35.5 g/dL (30-55) 04/30/25 19:10 RDW 14.6 % (12.1-15.1) 04/30/25 19:10 Plt Count 275 10^3/cmm (157-399) 04/30/25 19:10 MPV 10.5 fL (7.4-10.4) H 04/30/25 19:10 Neut % (Auto) 81.1 % 04/30/25 19:10 Lymph % (Auto) 12.5 % 04/30/25 19:10 [place] % (Auto) 5.3 % 04/30/25 19:10 Eos % (Auto) 0.2 % 04/30/25 19:10 Baso % (Auto) 0.6 % 04/30/25 19:10 Neut # (Auto) 9.47 10^3/uL (1.8-7.7) H 04/30/25 19:10 Lymph # (Auto) 1.5 10^3/uL (0.8-4.8) 04/30/25 19:10 [place] # (Auto) 0.6 10^3/uL (0.2-0.9) 04/30/25 19:10 Eos # (Auto) 0.0 10^3/uL (0.0-0.8) 04/30/25 19:10 Baso # (Auto) 0.1 10^3/uL (0.0-0.1) 04/30/25 19:10 Nucleated RBC % (auto) 0 % 04/30/25 19:10 Nucleated RBCs # 0.0 /100WBC 04/30/25 19:10 Sodium 141 mmol/L (136-145) 04/30/25 19:10 Potassium 4.2 mmol/L (3.5-5.1) 04/30/25 19:10 Chloride 104 mmol/L (98-107) 04/30/25 19:10 Carbon Dioxide 26 mmol/L (22-29) 04/30/25 19:10 Anion Gap 15.2 (5-19) 04/30/25 19:10 BUN 16 mg/dL (6-20) 04/30/25 19:10 Creatinine 1.0 mg/dL (0.7-1.2) 04/30/25 19:10 GFR Calculation 77.9 mL/min (90-130) L 04/30/25 19:10 Glucose 116 mg/dL (65-115) H 04/30/25 19:10 Calculated Osmolality 294 mOsm/kg (285-295) 04/30/25 19:10 Lactic Acid 1.7 mmol/L (0.5-2.2) 04/30/25 19:10 Calcium 9.7 mg/dL (8.5-10.5) 04/30/25 19:10 Total Bilirubin 1.0 mg/dL (0.15-1.2) 04/30/25 19:10 AST 21 U/L (0-40) 04/30/25 19:10 ALT 28 U/L (0-41) 04/30/25 19:10 Alkaline Phosphatase 91 U/L (40-130) 04/30/25 19:10 Total Protein 7.7 g/dL (6.6-8.7) 04/30/25 19:10 Albumin 4.8 g/dL (3.5-5.2) 04/30/25 19:10 Globulin 2.9 g/dL (1.3-4.6) 04/30/25 19:10 Urine Color Yellow (Yellow) 04/30/25 18:08 Urine Appearance Clear (CLEAR) 04/30/25 18:08 Urine pH 5.5 (5-7) 04/30/25 18:08 Ur Specific [place] 1.004 (1.005-1.030) L 04/30/25 18:08 Urine Protein Negative (Negative) 04/30/25 18:08 Urine Glucose (UA) Negative (Normal) 04/30/25 18:08 Urine Ketones Negative (Negative) 04/30/25 18:08 Urine Blood Trace (Negative) A 04/30/25 18:08 Urine Nitrate Negative (Negative) 04/30/25 18:08 Urine Bilirubin Negative (Negative) 04/30/25 18:08 Urine Urobilinogen 0.2 mg/dL (Negative) 04/30/25 18:08 Ur Leukocyte Esterase Negative (Negative) 04/30/25 18:08 Urine RBC 0-2 /hpf (0-2) 04/30/25 18:08 Urine WBC 0-5 /hpf (0-5) 04/30/25 18:08 Ur Squamous Epith Cells 0-5 /hpf (0-5) 04/30/25 18:08 Amorphous Sediment Not Reportable 04/30/25 18:08 Urine Bacteria None seen /hpf (NONE) 04/30/25 18:08 Hyaline Casts 0-4 /lpf H 04/30/25 18:08 All radiology interpretation(s) finalized by discharge Discharge Plan Discharge Patient Disposition: Home Clinical Impression: Flank pain, right side Condition: Stable Prescriptions: No Action acetaminophen [Tylenol Extra Strength] 500 mg tablet 500 mg PO QID PRN omega-3 fatty acids [Fish Oil Concentrate] 1,000 mg capsule 1,000 mg PO .morning Qty: 30 5RF Rx Instructions: Take one capsule every morning multivitamin Tablet 1 tab PO DAILY omeprazole 20 mg capsule,delayed release(DR/EC) 20 mg PO DAILY mirtazapine 30 mg tablet 30 mg PO .bedtime Qty: 30 6RF Rx Instructions: Take one tablet at bedtime buspirone 15 mg tablet 15 mg PO BID Qty: 30 6RF Rx Instructions: Take one tablet twice per day DGL as directed Discharge Orders: Discharge ED (Routine); Ordered 04/30/25 Ordered By: Deb Barahona Referrals: June Dailey, SHANTEL [Primary Care Provider, Family Practice] Discharge Diet: Usual diet Discharge Activity: Increase activity as tolerated Patient Instructions: Flank Pain (ED), Opioid Safety, Pain Management, Patient Portal & Demarco Instructions Activity Restrictions/Additional Instructions: Thank you for choosing [facility] for your healthcare needs today. You have been screened and evaluated and felt safe for discharge. Health conditions do change or evolve sometimes and as such it is important that you follow up with your Primary Doctor to be re checked, 3-5 days is a general good time frame for follow up. You are always welcome to return to the ED for re assessment if your symptoms are worsening or you have new concerns Print Language: Egyptian Coding Level of Care Code ED Box Puller for Ela Irwin
[2025-04-30 19:28] LABS: Hematocrit 46.8 % (37-53); Hemoglobin 16.60 g/dL (11.27-16.99); Mean Corpuscular HGB Conc 35.5 g/dL (30-55); Mean Corpuscular Hemoglobin 36.9 pg (27-33); Mean Corpuscular Volume 104.0 fl (82-101); Nucleated Red Blood Cells % 0 %; Platelet Count 275 10^3/cmm (157-399); Red Blood Count 4.50 10^6/uL (3.85-5.65); White Blood Count 11.67 10^3/uL (3.29-11.43)
[2025-04-30 19:44] LABS: Alanine Aminotransferase 28 U/L (0-41); Albumin Level 4.8 g/dL (3.5-5.2); Alkaline Phosphatase 91 U/L (40-130); Anion Gap 15.2 (5-19); Aspartate Amino Transferase 21 U/L (0-40); Blood Urea Nitrogen 16 mg/dL (6-20); Calcium 9.7 mg/dL (8.5-10.5); Carbon Dioxide 26 mmol/L (22-29); Chloride 104 mmol/L (98-107); Creatinine Clr Calc Pharmacy 133.6440; Globulin 2.9 g/dL (1.3-4.6); Glucose 116 mg/dL (65-115); Osmolality Calculated 294 mOsm/kg (285-295); Potassium 4.2 mmol/L (3.5-5.1); Sodium 141 mmol/L (136-145); Total Protein 7.7 g/dL (6.6-8.7)
[2025-04-30 19:45] LABS: Lactic Sepsis W/Reflex 1.7 mmol/L (0.5-2.2)
== END 2025-04-30 20:18 | disposition home or self-care (01) ==
PROVIDERS: Physician Assistant; Emergency Provider Emergency Medicine; PCP Nurse Practitioner
DX: R10.A1 Flank pain, right side (principal); Z87.891 Personal history of nicotine dependence
CPT/HCPCS: 36415; 74176; 80053; 81001; 83605; 85025; 87040; 99284